=== PATIENT | female | born 1970 ===

== ENCOUNTER 2017-06-24 20:27 | Observation (INO) | payer MEDICAID ==
[2017-06-24 20:28] VITALS: BMI 26.3
[2017-06-24] MEDS ORDERED: Aspirin 325 mg EC Tablets PO STA (21:27)
--- NOTE | 2017-06-24 21:28 | C.PDOC ---
History Of Present Illness 46 y/o female with PMHx of diabetes and HTN presents with 4 days of waxing/ waning substernal chest pain, associated with nausea. No vomiting or SOB. Pain is not positional, exertional, or pleuritic in nature. Patient admits to smoking half a pack per day. No prior hx of cardiac disease. On arrival patient is hypertensive, blood pressure 186/103. She reports the pain also radiates into her back. Denies any associated dizziness, weakness, or visual changes. Time Seen by Provider: 06/24/17 21:20 Chief Complaint (Nursing): Chest Pain History Per: Patient History/Exam Limitations: no limitations Onset/Duration Of Symptoms: Waxing/Waning (x 4 days) Current Symptoms Are (Timing): Still Present Alleviating Factors: None Past Medical History Reviewed: Historical Data, Nursing Documentation, Vital Signs Vital Signs: Last Vital Signs Temp 97.9 F 06/24/17 20:44 Pulse 53 L 06/24/17 22:08 Resp 16 06/24/17 22:08 BP 142/72 06/24/17 22:08 Pulse Ox 98 06/24/17 22:12 - Medical History PMH: Anxiety, Diabetes, HTN Denies: Chronic Kidney Disease Surgical History: Pacemaker (removed in 2012) - [facility] Procedures VACCINATION NEC (03/24/14) Family History: States: No Known Family Hx - Social History Hx Tobacco Use: Yes Hx Alcohol Use: No Hx Substance Use: No - Immunization History Hx Tetanus Toxoid Vaccination: No Hx Influenza Vaccination: No Hx Pneumococcal Vaccination: No Review Of Systems Except As Marked, All Systems Reviewed And Found Negative. Constitutional: Negative for: Fever Eyes: Negative for: Vision Change Cardiovascular: Positive for: Chest Pain Respiratory: Negative for: Cough, Shortness of Breath Gastrointestinal: Positive for: Nausea. Negative for: Vomiting Musculoskeletal: Positive for: Back Pain Neurological: Negative for: Weakness, Numbness, Dizziness Physical Exam - Physical Exam Appears: Non-toxic, No Acute Distress, Other (Afebrile, O2 is 98% on room air) Skin: Warm, Dry, No Rash Head: Atraumatic, Normacephalic Eye(s): bilateral: Normal Inspection, PERRL, EOMI Nose: Normal Oral Mucosa: Moist Chest: Symmetrical, No Tenderness (or reproducible pain on palpation of chest wall) Cardiovascular: Rhythm Regular, No Murmur, Other (S1,S2 are wnl) Respiratory: Normal Breath Sounds, No Rales, No Rhonchi, No Wheezing Gastrointestinal/Abdominal: Soft, Tenderness (mild tenderness to epigastric area ), No Guarding, No Rebound Extremity: Bilateral: Atraumatic, Normal Color And Temperature (with no clubbing , cyanosis, or edema), Normal ROM Pulses: Left Dorsalis Pedis: Normal, Right Dorsalis Pedis: Normal Neurological/Psych: Oriented x3, Normal Speech, Normal Cranial Nerves, No Other (focal deficits) Gait: Steady ED Course And Treatment - Laboratory Results Result Diagrams: 06/24/17 21:37 06/24/17 21:37 O2 Sat by Pulse Oximetry: 98 (RA) Pulse Ox Interpretation: Normal - Radiology CXR: Interpreted by Me, Viewed By Me CXR Interpretation: Yes: No Acute Disease Medical Decision Making Medical Decision Making: Initial Impression: Atypical chest pain, multiple risk factors for ischemic heart disease Time: 21:27 Initial Plan: * Routine labs * EKG * Chest X-ray * Aspirin 325 mg PO * NTG 0.4 mg SL Progress/Updates: EKG: sinus jett at 55 bpm, no ectopy, no ST or T wave changes, intervals are all wnl Labs reviewed, D-dimer is elevated. CXR is negative. 22:[address] Lucretia Nobles, medicine on-call. Patient will be admitted for observation for chest pain. Disposition Counseled Patient/Family Regarding: Studies Performed, Diagnosis - Disposition Disposition: HOSPITALIZED Disposition Time: 22:10 Condition: FAIR Forms: [facility] (Nepali) - POA Present On Arrival: None Core Measure Indicators: Chest Pain - Clinical Impression Clinical Impression: Chest pain - Scribe Statement The provider has reviewed the documentation as recorded by the Scribe (Amber Rolon) Provider Attestation: All medical record entries made by the Scribe were at my direction and personally dictated by me. I have reviewed the chart and agree that the record accurately reflects my personal performance of the history, physical exam, medical decision making, and the department course for this patient. I have also personally directed, reviewed, and agree with the discharge instructions and disposition.
--- NOTE | 2017-06-24 21:29 | C.PDOC ---
Chief Complaint (Nursing): Chest Pain Past Medical History Vital Signs: Last Vital Signs Temp 97.9 F 06/24/17 20:44 Pulse 70 06/24/17 21:08 Resp 20 06/24/17 20:44 BP 186/103 H 06/24/17 20:44 Pulse Ox 98 06/24/17 20:44 - Medical History PMH: Anxiety, HTN Denies: Chronic Kidney Disease Surgical History: Pacemaker (removed in 2012) - [facility] Procedures VACCINATION NEC (03/24/14) - Social History Hx Tobacco Use: Yes Hx Alcohol Use: No Hx Substance Use: No - Immunization History Hx Tetanus Toxoid Vaccination: No Hx Influenza Vaccination: No Hx Pneumococcal Vaccination: No ED Course And Treatment O2 Sat by Pulse Oximetry: 98 Disposition - Disposition
[2017-06-24 21:43] LABS: BASO # 0.1 K/uL (0.0-0.2); BASO % 0.8 % (0.0-2.0); EOS # 0.3 K/uL (0.0-0.7); EOS % 4.7 % (0.0-4.0); HEMOGLOBIN 12.7 g/dL (11.0-16.0); LYMPH # 3.9 K/uL (1.0-4.3); MEAN CORPUSCULAR HEMOGLOBIN 30.2 pg (27.0-31.0); MEAN CORPUSCULAR HGB CONC 33.9 g/dL (33.0-37.0); MEAN PLATELET VOLUME 7.6 fL (7.2-11.7); MONO # 0.5 K/uL (0.0-0.8); MONO % 7.1 % (0.0-10.0); NEUT # 2.5 K/uL (1.8-7.0); NEUT % 34.4 % (50.0-75.0); NRBC % 0.1 % (0.0-2.0); RBC 4.21 Mil/uL (3.80-5.20); RED CELL DISTRIBUTION WIDTH 12.5 % (11.5-14.5); WHITE BLOOD COUNT 7.3 K/uL (4.8-10.8)
[2017-06-24 21:47] LABS: SQUAMOUS EPITHIAL 1 /hpf (0-5); URINE BILIRUBIN NEGATIVE (NEGATIVE); URINE BLOOD 2+ (NEGATIVE); URINE CLARITY Clear (Clear); URINE COLOR Colorless (YELLOW); URINE GLUCOSE (UA) NORMAL (Normal); URINE LEUKOCYTE ESTERASE NEG Leu/uL (Negative); URINE PROTEIN NEGATIVE (NEGATIVE); URINE UROBILINOGEN NORMAL mg/dL (0.2-1.0)
[2017-06-24 21:54] LABS: ALB/GLOB RATIO 1.1 (1.0-2.1); ALBUMIN 4.5 g/dL (3.5-5.0); ALT/SGPT 15 U/L (9-52); AST/SGOT 24 U/L (14-36); BLOOD UREA NITROGEN 13 mg/dL (7-17); CALCIUM 9.5 mg/dl (8.6-10.4); GFR AFRICAN-AMERICAN > 60; GFR NON-AFRICAN AMERICAN > 60
[2017-06-24 22:11] LABS: INR 1.2; PROTHROMBIN TIME 12.9 SECONDS (9.7-12.2)
[2017-06-25 08:53] LABS: CK-MB 0.26 ng/mL (0.0-3.38)
--- NOTE | 2017-06-25 09:26 | RAD ---
Chest x-ray single frontal view History: Chest pain. Comparison: None available. Findings: No focal infiltrate or effusion. Small nodular density at the right costophrenic angle may represent confluence of shadows with ribs and vessels. Heart size within normal limits. Impression: No focal infiltrate or effusion. Small nodular density at the right costophrenic angle may represent confluence of shadows with ribs and vessels.
[2017-06-25] MEDS: Enoxaparin 40 mg Syringe SC SCH (09:41)
[2017-06-25] MEDS ORDERED: AMLODIPINE BESYLATE 5 MG PO SCH (10:00)
[2017-06-25] MEDS ORDERED: Pantoprazole 40 mg EC Tab PO SCH (10:00)
--- NOTE | 2017-06-25 10:31 | CP.PCM.PN ---
Addendum entered and electronically signed by Stephy Ames DO 06/25/17 14:23: Patient see [facility] outpatient who works with Dr. Laughlin. Will switch the consult. Original Note: <Stephy Ames - Last Filed: 06/25/17 13:28> Subjective - Date & Time of Evaluation Date of Evaluation: 06/25/17 Time of Evaluation: 08:20 - Subjective Subjective: PGY [address] Lucretia Nobles: Patient see and examined at bedside this morning. Patient states that yesterday she was dizzy, having chest pain, was sob, and was vomiting but that this has all resolved as of this morning. She states that she takes amlodipine for htn at home and also told she was prediabetic. Patient used to have a pacemaker for bradycardia but it was removed. She has no complaints at this time. PMHX - HTN, prediabetic, bradycardia PSHx: pacemaker placed in 2002 and removed in 2012. C-sections x2, Family hx: mom and dad both have DM and HTN Social hx: lives with family. smokes 1 cig/week for one year. occasional etoh use (1 beer [id number]). denies drug use. Pt states she works in [employer] and lifts boxes. Meds: Amlodipine 5mg po qd, Metformin (3 months trial) Allergies: NKDA Objective - Vital Signs/Intake and Output Vital Signs (last 24 hours): Temp Pulse Resp BP Pulse Ox 98.2 F 49 L 16 126/68 100 06/25/17 07:25 06/25/17 09:30 06/25/17 09:30 06/25/17 09:30 06/25/17 09:30 Intake and Output: 06/25/17 06/25/17 06:59 18:59 Intake Total 120 Balance 120 - Medications Medications: Current Medications Aspirin (Aspirin Chewable) 81 mg PO DAILY [facility] Last Admin: 06/25/17 09:42 Dose: 81 mg Enoxaparin Sodium (Lovenox) 40 mg SC DAILY [facility] Last Admin: 06/25/17 09:41 Dose: 40 mg Home Med (Amlodipine Besylate [Amlodipine Besylate]) 5 mg PO DAILY [facility] Pantoprazole Sodium (Protonix Ec Tab) 40 mg PO DAILY [facility] Last Admin: 06/25/17 09:42 Dose: 40 mg - Labs Labs: 06/24/17 21:37 06/24/17 21:37 PT 12.9 SECONDS (9.7-12.2) H 06/24/17 21:37 INR 1.2 06/24/17 21:37 APTT 30 SECONDS (21-34) 06/24/17 21:37 - Constitutional Appears: Non-toxic, No Acute Distress - Head Exam Head Exam: ATRAUMATIC, NORMAL INSPECTION - Eye Exam Eye Exam: EOMI - ENT Exam ENT Exam: Mucous Membranes Moist - Respiratory Exam Respiratory Exam: Clear to Ausculation Bilateral, NORMAL BREATHING PATTERN. absent: Respiratory Distress - Cardiovascular Exam Cardiovascular Exam: Bradycardia, REGULAR RHYTHM, +S1, +S2, Murmur - GI/Abdominal Exam GI & Abdominal Exam: Soft, Normal Bowel Sounds. absent: Distended, Firm, Guarding, Tenderness - Extremities Exam Extremities Exam: Normal Inspection - Back Exam Back Exam: NORMAL INSPECTION - Neurological Exam Neurological Exam: Alert, Awake, CN II-XII Intact, Normal Gait, Oriented x3 Neuro motor strength exam: Left Upper Extremity: 5, Right Upper Extremity: 5, Left Lower Extremity: 5, Right Lower Extremity: 5 - Psychiatric Exam Psychiatric exam: Normal Affect, Normal Mood - Skin Skin Exam: Dry, Intact, Normal Color, Warm Assessment and Plan - Assessment and Plan (Free Text) Assessment: Chest pain r/o ACS patient is bradycardic (hx of a pacemaker) - asymptomatic this morning Trop negative x 2 Dr. Horvath consulted help appreciated Asa 81 mg PO daily EKG - sinus bradycardia with sinus arrhythmia Chest X ray - small nodular density at the right costophrenic angle may represent confluence of shadows with ribs and vessels f/u tsh, chem, lipid panel f/u echo (pt with murmur) Bradycardia Dr. Horvath consulted help appreciated Elevated DDImer was elevated when ordered by ER f.u CT angio per PE protocol Hypertension controlled Continue home amlodipine 5mg PO daily Hx pre diabetes f/u HbA1c hold home metformin as patient will receive contrast with CT scan, monitor renal function Prophylaxis Pepcid 20mg PO BID Lovenox 40mg Sc daily All management per Dr. Lucretia Nobles <Mirna Nobles S - Last Filed: 06/25/17 23:27> Objective - Vital Signs/Intake and Output Vital Signs (last 24 hours): Temp Pulse Resp BP Pulse Ox 98.0 F 67 20 105/63 99 06/25/17 15:00 06/25/17 16:00 06/25/17 15:00 06/25/17 15:00 06/25/17 15:00 Intake and Output: 06/25/17 06/26/17 18:59 06:59 Intake Total 960 Balance 960 - Medications Medications: Current Medications Amlodipine Besylate (Norvasc) 5 mg PO DAILY [facility] Last Admin: 06/25/17 11:01 Dose: 5 mg Aspirin (Aspirin Chewable) 81 mg PO DAILY [facility] Last Admin: 06/25/17 09:42 Dose: 81 mg Enoxaparin Sodium (Lovenox) 40 mg SC DAILY [facility] Last Admin: 06/25/17 09:41 Dose: 40 mg Famotidine (Pepcid) 20 mg PO BID [facility] Last Admin: 06/25/17 17:46 Dose: 20 mg - Labs Labs: 06/25/17 11:12 06/25/17 11:12 PT 12.9 SECONDS (9.7-12.2) H 06/24/17 21:37 INR 1.2 06/24/17 21:37 APTT 30 SECONDS (21-34) 06/24/17 21:37 Attending/Attestation - Attestation I have personally seen and examined this patient.: Yes I have fully participated in the care of the patient.: Yes I have reviewed all pertinent clinical information, including history, physical exam and plan: Yes
[2017-06-25 11:29] LABS: BASO % 0.7 % (0.0-2.0); EOS # 0.2 K/uL (0.0-0.7); EOS % 4.2 % (0.0-4.0); HEMOGLOBIN 12.4 g/dL (11.0-16.0); LYMPH # 2.3 K/uL (1.0-4.3); LYMPH % 44.9 % (20.0-40.0); MEAN CELL VOLUME 88.3 fL (81.0-99.0); MEAN CORPUSCULAR HEMOGLOBIN 30.2 pg (27.0-31.0); MEAN CORPUSCULAR HGB CONC 34.1 g/dL (33.0-37.0); MEAN PLATELET VOLUME 7.7 fL (7.2-11.7); MONO # 0.5 K/uL (0.0-0.8); MONO % 9.1 % (0.0-10.0); NEUT # 2.1 K/uL (1.8-7.0); NEUT % 41.1 % (50.0-75.0); NRBC % 0.1 % (0.0-2.0); RBC 4.1 Mil/uL (3.80-5.20); RED CELL DISTRIBUTION WIDTH 12.6 % (11.5-14.5); WHITE BLOOD COUNT 5.1 K/uL (4.8-10.8)
[2017-06-25] MEDS ORDERED: Iodixanol 320 MG/ML 100 ML BOTTLE IV ONE (11:39)
[2017-06-25 11:50] LABS: ALB/GLOB RATIO 1.2 (1.0-2.1); ALBUMIN 4.1 g/dL (3.5-5.0); ALT/SGPT 12 U/L (9-52); AST/SGOT 20 U/L (14-36); BLOOD UREA NITROGEN 10 mg/dL (7-17); GFR AFRICAN-AMERICAN > 60; GFR NON-AFRICAN AMERICAN > 60; HDL CHOLESTEROL 42 mg/dL (30-70)
[2017-06-25 11:59] LABS: LDL CHOLESTEROL 98 mg/dL (0-129)
--- NOTE | 2017-06-25 12:05 | CARD ---
APPROVED REPORT EKG Measurement Heart [id number] <Conclusion> Poor data quality, interpretation may be adversely affected Sinus bradycardia with sinus arrhythmia Otherwise normal ECG
--- NOTE | 2017-06-25 13:35 | CT ---
PROCEDURE: CT Chest with contrast (Pulmonary Angiogram) HISTORY: r/o PE elevated DDimer COMPARISON: None available. TECHNIQUE: Axial computed tomography images were obtained of the chest in the pulmonary arterial phase of enhancement. Coronal and sagittal reformatted images were created and reviewed. Intravenous contrast dose: Visipaque 320, 100 cc Radiation dose: Total exam DLP = 434.44 mGy-cm. This CT exam was performed using one or more of the following dose reduction techniques: Automated exposure control, adjustment of the mA and/or kV according to patient size, and/or use of iterative reconstruction technique. FINDINGS: PULMONARY ARTERIES: Unremarkable. No pulmonary embolism. AORTA: No acute findings. No thoracic aortic aneurysm. LUNGS: Unremarkable. No nodule, mass or pulmonary consolidation. PLEURAL SPACES: Unremarkable. No effusion or pneuomothorax. HEART: Unremarkable. No cardiomegaly. No significant pericardial effusion. There is a persistent left-sided inferior vena cava which extends cephalad adjoining the apparent azygos vein and apparently terminating at the mid to inferior superior vena cava. LYMPH NODES: No lymphadenopathy. BONES, CHEST WALL: Unremarkable. No fracture or destructive lesion OTHER FINDINGS: Unremarkable. IMPRESSION: 1. No CT evidence of pulmonary embolus. 2. No acute infiltrate, pleural or pericardial effusion. Cardiac size is stable with no interval suspicious pathology appreciated. 3. Reiteration of left-sided inferior vena cava with persistence to the azygos vein in the chest.
[2017-06-25 15:35] LABS: CK-MB < 0.22 ng/mL (0.0-3.38)
--- NOTE | 2017-06-25 17:13 | CP.PCM.HP ---
Past Patient History - Past Medical History & Family History Past Medical History?: Yes - Past Social History Smoking Status: Former Smoker - CARDIAC Hx Hypertension: Yes Hx Pacemaker: Yes (removed in 2012) - PULMONARY Hx Respiratory Disorders: No - NEUROLOGICAL Hx Neurological Disorder: No - HEENT Hx HEENT Problems: No - RENAL Hx Chronic Kidney Disease: No - ENDOCRINE/METABOLIC Hx Endocrine Disorders: No - HEMATOLOGICAL/ONCOLOGICAL Hx Blood Disorders: No - INTEGUMENTARY Hx Dermatological Problems: No - MUSCULOSKELETAL/RHEUMATOLOGICAL Hx Musculoskeletal Disorders: No - GASTROINTESTINAL Hx Gastrointestinal Disorders: No - GENITOURINARY/GYNECOLOGICAL Hx Genitourinary Disorders: No - PSYCHIATRIC Hx Anxiety: Yes Hx Substance Use: No - SURGICAL HISTORY Hx Surgeries: Yes Other/Comment: c section x 2 - ANESTHESIA Hx Anesthesia: Yes Hx Anesthesia Reactions: No Hx Malignant Hyperthermia: No Meds Allergies/Adverse Reactions: Allergies Allergy/AdvReac Type Severity Reaction Status Date / Time No Known Allergies Allergy Verified 06/24/17 20:48 Physical Exam - Constitutional Appears: Well - Head Exam Head Exam: ATRAUMATIC, NORMAL INSPECTION, NORMOCEPHALIC - Eye Exam Eye Exam: EOMI, Normal appearance, PERRL Pupil Exam: NORMAL ACCOMODATION, PERRL - ENT Exam ENT Exam: Mucous Membranes Moist, Normal Exam - Neck Exam Neck exam: Positive for: Normal Inspection - Respiratory Exam Respiratory Exam: Decreased Breath Sounds - Cardiovascular Exam Cardiovascular Exam: REGULAR RHYTHM, +S1, +S2 - GI/Abdominal Exam GI & Abdominal Exam: Diminished Bowel Sounds, Soft - Rectal Exam Rectal Exam: Deferred Results - Vital Signs Recent Vital Signs: Last Vital Signs Temp 98.0 F 06/25/17 15:00 Pulse 51 L 06/25/17 15:00 Resp 20 06/25/17 15:00 BP 105/63 06/25/17 15:00 Pulse Ox 99 06/25/17 15:00 - Labs Result Diagrams: 06/25/17 11:12 06/25/17 11:12 Labs: Laboratory Results - last 24 hr 06/24/17 06/24/17 06/24/17 21:37 21:37 21:37 WBC 7.3 RBC 4.21 Hgb 12.7 Hct 37.5 MCV 89.0 D MCH 30.2 MCHC 33.9 RDW 12.5 Plt Count 281 MPV 7.6 Neut % (Auto) 34.4 L Lymph % (Auto) 53.0 H [place] % (Auto) 7.1 Eos % (Auto) 4.7 H Baso % (Auto) 0.8 Neut # (Auto) 2.5 Lymph # (Auto) 3.9 [place] # (Auto) 0.5 Eos # (Auto) 0.3 Baso # (Auto) 0.1 PT 12.9 H INR 1.2 APTT 30 D-Dimer, Quantitative 376 H Sodium 143 Potassium 4.3 Chloride 104 Carbon Dioxide 25 Anion Gap 18 BUN 13 Creatinine 0.8 Est GFR ( Amer) > 60 Est GFR (Non-Af Amer) > 60 POC Glucose (mg/dL) Random Glucose 96 Hemoglobin A1c Calcium 9.5 Phosphorus Magnesium Total Bilirubin 0.4 AST 24 ALT 15 Alkaline Phosphatase 52 Total Creatine Kinase CK-MB (Mass) Troponin I < 0.0120 NT-Pro-B Natriuret Pep 40.0 Total Protein 8.7 H Albumin 4.5 Globulin 4.1 H Albumin/Globulin Ratio 1.1 Triglycerides Cholesterol LDL Cholesterol Direct HDL Cholesterol Urine Color Urine Clarity Urine pH Ur Specific [place] Urine Protein Urine Glucose (UA) Urine Ketones Urine Blood Urine Nitrate Urine Bilirubin Urine Urobilinogen Ur Leukocyte Esterase Urine RBC (Auto) Ur Squamous Epith Cells Urine HCG, Qual 06/24/17 06/24/17 06/25/17 21:37 21:37 06:17 WBC RBC Hgb Hct MCV MCH MCHC RDW Plt Count MPV Neut % (Auto) Lymph % (Auto) [place] % (Auto) Eos % (Auto) Baso % (Auto) Neut # (Auto) Lymph # (Auto) [place] # (Auto) Eos # (Auto) Baso # (Auto) PT INR APTT D-Dimer, Quantitative Sodium Potassium Chloride Carbon Dioxide Anion Gap BUN Creatinine Est GFR ( Amer) Est GFR (Non-Af Amer) POC Glucose (mg/dL) 88 Random Glucose Hemoglobin A1c Calcium Phosphorus Magnesium Total Bilirubin AST ALT Alkaline Phosphatase Total Creatine Kinase CK-MB (Mass) Troponin I NT-Pro-B Natriuret Pep Total Protein Albumin Globulin Albumin/Globulin Ratio Triglycerides Cholesterol LDL Cholesterol Direct HDL Cholesterol Urine Color Colorless Urine Clarity Clear Urine pH 7.0 Ur Specific [place] 1.003 Urine Protein Negative Urine Glucose (UA) Normal Urine Ketones Negative Urine Blood 2+ H Urine Nitrate Negative Urine Bilirubin Negative Urine Urobilinogen Normal Ur Leukocyte Esterase Neg Urine RBC (Auto) 19 H Ur Squamous Epith Cells 1 Urine HCG, Qual Negative 06/25/17 06/25/17 06/25/17 07:44 11:12 11:12 WBC 5.1 RBC 4.10 Hgb 12.4 Hct 36.2 MCV 88.3 MCH 30.2 MCHC 34.1 RDW 12.6 Plt Count 275 MPV 7.7 Neut % (Auto) 41.1 L Lymph % (Auto) 44.9 H [place] % (Auto) 9.1 Eos % (Auto) 4.2 H Baso % (Auto) 0.7 Neut # (Auto) 2.1 Lymph # (Auto) 2.3 [place] # (Auto) 0.5 Eos # (Auto) 0.2 Baso # (Auto) 0.0 PT INR APTT D-Dimer, Quantitative Sodium 141 Potassium 3.8 Chloride 104 Carbon Dioxide 24 Anion Gap 16 BUN 10 Creatinine 0.7 Est GFR ( Amer) > 60 Est GFR (Non-Af Amer) > 60 POC Glucose (mg/dL) Random Glucose 105 Hemoglobin A1c Calcium 9.0 Phosphorus 3.2 Magnesium 2.0 Total Bilirubin 0.4 AST 20 ALT 12 Alkaline Phosphatase 49 Total Creatine Kinase 74 CK-MB (Mass) 0.26 Troponin I < 0.0120 NT-Pro-B Natriuret Pep Total Protein 7.6 Albumin 4.1 Globulin 3.5 Albumin/Globulin Ratio 1.2 Triglycerides 40 D Cholesterol 164 LDL Cholesterol Direct 98 HDL Cholesterol 42 Urine Color Urine Clarity Urine pH Ur Specific [place] Urine Protein Urine Glucose (UA) Urine Ketones Urine Blood Urine Nitrate Urine Bilirubin Urine Urobilinogen Ur Leukocyte Esterase Urine RBC (Auto) Ur Squamous Epith Cells Urine HCG, Qual 06/25/17 06/25/17 11:12 15:01 WBC RBC Hgb Hct MCV MCH MCHC RDW Plt Count MPV Neut % (Auto) Lymph % (Auto) [place] % (Auto) Eos % (Auto) Baso % (Auto) Neut # (Auto) Lymph # (Auto) [place] # (Auto) Eos # (Auto) Baso # (Auto) PT INR APTT D-Dimer, Quantitative Sodium Potassium Chloride Carbon Dioxide Anion Gap BUN Creatinine Est GFR ( Amer) Est GFR (Non-Af Amer) POC Glucose (mg/dL) Random Glucose Hemoglobin A1c 6.1 Calcium Phosphorus Magnesium Total Bilirubin AST ALT Alkaline Phosphatase Total Creatine Kinase 69 CK-MB (Mass) < 0.22 Troponin I < 0.0120 NT-Pro-B Natriuret Pep Total Protein Albumin Globulin Albumin/Globulin Ratio Triglycerides Cholesterol LDL Cholesterol Direct HDL Cholesterol Urine Color Urine Clarity Urine pH Ur Specific [place] Urine Protein Urine Glucose (UA) Urine Ketones Urine Blood Urine Nitrate Urine Bilirubin Urine Urobilinogen Ur Leukocyte Esterase Urine RBC (Auto) Ur Squamous Epith Cells Urine HCG, Qual Assessment & Plan (1) Bradycardia Status: Acute (2) Chest discomfort Status: Acute (3) Chest pain Status: Acute (4) HTN (hypertension) Status: Acute (5) Prophylactic measure Status: Acute - Assessment and Plan (Free Text) Plan: Chest pain r/o ACS patient is bradycardic (hx of a pacemaker) - asymptomatic this morning Trop negative x 2 Dr. Horvath consulted help appreciated Asa 81 mg PO daily EKG - sinus bradycardia with sinus arrhythmia Chest X ray - small nodular density at the right costophrenic angle may represent confluence of shadows with ribs and vessels f/u tsh, chem, lipid panel f/u echo (pt with murmur) Bradycardia Dr. Horvath consulted help appreciated Elevated DDImer was elevated when ordered by ER f.u CT angio per PE protocol Hypertension controlled Continue home amlodipine 5mg PO daily Hx pre diabetes f/u HbA1c hold home metformin as patient will receive contrast with CT scan, monitor renal function Prophylaxis Pepcid 20mg PO BID Lovenox 40mg Sc daily
--- NOTE | 2017-06-25 18:02 | CP.PCM.CON ---
History of Present Illness - History of Present Illness History of Present Illness: The pt is a 46 year old woman with HTN. She had a PPM placed in [facility] for s bradycardia and syncope. Five years ago, she was evaluated by Dr Pierson who disagreed with PPM, and removed it. Pt has chronic s bradycardia. She has had vage prolonged chest pain, waxing and waning at rest. She has LLQ abdominal pain and loose stools. She has pain in her left shoulder and back that is positional. Finally, she has a headache. Initially, BP here was very high 180/100, but with only 5 mg of amlodipine, Bp is 142 systolic. TNI are negative times three, and ecg reveals nsr, no ischemic changes. A chest ct to r/o PE was negative. ECHO is normal, including normal diastolic function (would be expected to be abnormal with chronically poor controlled HTN) Review of Systems - Review of Systems All systems: reviewed and no additional remarkable complaints except (as above) Past Patient History - Past Medical History & Family History Past Medical History?: Yes - Past Social History Smoking Status: Former Smoker - CARDIAC Hx Hypertension: Yes Hx Pacemaker: Yes (removed in 2012) - PULMONARY Hx Respiratory Disorders: No - NEUROLOGICAL Hx Neurological Disorder: No - HEENT Hx HEENT Problems: No - RENAL Hx Chronic Kidney Disease: No - ENDOCRINE/METABOLIC Hx Endocrine Disorders: No - HEMATOLOGICAL/ONCOLOGICAL Hx Blood Disorders: No - INTEGUMENTARY Hx Dermatological Problems: No - MUSCULOSKELETAL/RHEUMATOLOGICAL Hx Musculoskeletal Disorders: No - GASTROINTESTINAL Hx Gastrointestinal Disorders: No - GENITOURINARY/GYNECOLOGICAL Hx Genitourinary Disorders: No - PSYCHIATRIC Hx Anxiety: Yes Hx Substance Use: No - SURGICAL HISTORY Hx Surgeries: Yes Other/Comment: c section x 2 - ANESTHESIA Hx Anesthesia: Yes Hx Anesthesia Reactions: No Hx Malignant Hyperthermia: No Meds Allergies/Adverse Reactions: Allergies Allergy/AdvReac Type Severity Reaction Status Date / Time No Known Allergies Allergy Verified 06/24/17 20:48 - Medications Medications: Current Medications Amlodipine Besylate (Norvasc) 5 mg PO DAILY [facility] Last Admin: 06/25/17 11:01 Dose: 5 mg Aspirin (Aspirin Chewable) 81 mg PO DAILY [facility] Last Admin: 06/25/17 09:42 Dose: 81 mg Enoxaparin Sodium (Lovenox) 40 mg SC DAILY [facility] Last Admin: 06/25/17 09:41 Dose: 40 mg Famotidine (Pepcid) 20 mg PO BID [facility] Last Admin: 06/25/17 17:46 Dose: 20 mg Physical Exam - Constitutional Appears: Well - Head Exam Head Exam: ATRAUMATIC - Eye Exam Eye Exam: EOMI - ENT Exam ENT Exam: Mucous Membranes Moist - Respiratory Exam Respiratory Exam: Clear to Auscultation Bilateral - Cardiovascular Exam Cardiovascular Exam: REGULAR RHYTHM - GI/Abdominal Exam GI & Abdominal Exam: Normal Bowel Sounds - Exam External exam: NORMAL EXTERNAL EXAM - Extremities Exam Extremities exam: Positive for: normal inspection - Neurological Exam Neurological exam: Alert, Oriented x3 - Psychiatric Exam Psychiatric exam: Anxious - Skin Skin Exam: Normal Color Results - Vital Signs Recent Vital Signs: Last Vital Signs Temp 98.0 F 06/25/17 15:00 Pulse 51 L 06/25/17 15:00 Resp 20 06/25/17 15:00 BP 105/63 06/25/17 15:00 Pulse Ox 99 06/25/17 15:00 - Labs Result Diagrams: 06/25/17 11:12 06/25/17 11:12 Labs: Laboratory Results - last 24 hr 06/24/17 06/24/17 06/24/17 21:37 21:37 21:37 WBC 7.3 RBC 4.21 Hgb 12.7 Hct 37.5 MCV 89.0 D MCH 30.2 MCHC 33.9 RDW 12.5 Plt Count 281 MPV 7.6 Neut % (Auto) 34.4 L Lymph % (Auto) 53.0 H Smyth % (Auto) 7.1 Eos % (Auto) 4.7 H Baso % (Auto) 0.8 Neut # (Auto) 2.5 Lymph # (Auto) 3.9 Smyth # (Auto) 0.5 Eos # (Auto) 0.3 Baso # (Auto) 0.1 PT 12.9 H INR 1.2 APTT 30 D-Dimer, Quantitative 376 H Sodium 143 Potassium 4.3 Chloride 104 Carbon Dioxide 25 Anion Gap 18 BUN 13 Creatinine 0.8 Est GFR ( Amer) > 60 Est GFR (Non-Af Amer) > 60 POC Glucose (mg/dL) Random Glucose 96 Hemoglobin A1c Calcium 9.5 Phosphorus Magnesium Total Bilirubin 0.4 AST 24 ALT 15 Alkaline Phosphatase 52 Total Creatine Kinase CK-MB (Mass) Troponin I < 0.0120 NT-Pro-B Natriuret Pep 40.0 Total Protein 8.7 H Albumin 4.5 Globulin 4.1 H Albumin/Globulin Ratio 1.1 Triglycerides Cholesterol LDL Cholesterol Direct HDL Cholesterol Urine Color Urine Clarity Urine pH Ur Specific [place] Urine Protein Urine Glucose (UA) Urine Ketones Urine Blood Urine Nitrate Urine Bilirubin Urine Urobilinogen Ur Leukocyte Esterase Urine RBC (Auto) Ur Squamous Epith Cells Urine HCG, Qual 06/24/17 06/24/17 06/25/17 21:37 21:37 06:17 WBC RBC Hgb Hct MCV MCH MCHC RDW Plt Count MPV Neut % (Auto) Lymph % (Auto) Smyth % (Auto) Eos % (Auto) Baso % (Auto) Neut # (Auto) Lymph # (Auto) Smyth # (Auto) Eos # (Auto) Baso # (Auto) PT INR APTT D-Dimer, Quantitative Sodium Potassium Chloride Carbon Dioxide Anion Gap BUN Creatinine Est GFR ( Amer) Est GFR (Non-Af Amer) POC Glucose (mg/dL) 88 Random Glucose Hemoglobin A1c Calcium Phosphorus Magnesium Total Bilirubin AST ALT Alkaline Phosphatase Total Creatine Kinase CK-MB (Mass) Troponin I NT-Pro-B Natriuret Pep Total Protein Albumin Globulin Albumin/Globulin Ratio Triglycerides Cholesterol LDL Cholesterol Direct HDL Cholesterol Urine Color Colorless Urine Clarity Clear Urine pH 7.0 Ur Specific [place] 1.003 Urine Protein Negative Urine Glucose (UA) Normal Urine Ketones Negative Urine Blood 2+ H Urine Nitrate Negative Urine Bilirubin Negative Urine Urobilinogen Normal Ur Leukocyte Esterase Neg Urine RBC (Auto) 19 H Ur Squamous Epith Cells 1 Urine HCG, Qual Negative 06/25/17 06/25/17 06/25/17 07:44 11:12 11:12 WBC 5.1 RBC 4.10 Hgb 12.4 Hct 36.2 MCV 88.3 MCH 30.2 MCHC 34.1 RDW 12.6 Plt Count 275 MPV 7.7 Neut % (Auto) 41.1 L Lymph % (Auto) 44.9 H Smyth % (Auto) 9.1 Eos % (Auto) 4.2 H Baso % (Auto) 0.7 Neut # (Auto) 2.1 Lymph # (Auto) 2.3 Smyth # (Auto) 0.5 Eos # (Auto) 0.2 Baso # (Auto) 0.0 PT INR APTT D-Dimer, Quantitative Sodium 141 Potassium 3.8 Chloride 104 Carbon Dioxide 24 Anion Gap 16 BUN 10 Creatinine 0.7 Est GFR ( Amer) > 60 Est GFR (Non-Af Amer) > 60 POC Glucose (mg/dL) Random Glucose 105 Hemoglobin A1c Calcium 9.0 Phosphorus 3.2 Magnesium 2.0 Total Bilirubin 0.4 AST 20 ALT 12 Alkaline Phosphatase 49 Total Creatine Kinase 74 CK-MB (Mass) 0.26 Troponin I < 0.0120 NT-Pro-B Natriuret Pep Total Protein 7.6 Albumin 4.1 Globulin 3.5 Albumin/Globulin Ratio 1.2 Triglycerides 40 D Cholesterol 164 LDL Cholesterol Direct 98 HDL Cholesterol 42 Urine Color Urine Clarity Urine pH Ur Specific [place] Urine Protein Urine Glucose (UA) Urine Ketones Urine Blood Urine Nitrate Urine Bilirubin Urine Urobilinogen Ur Leukocyte Esterase Urine RBC (Auto) Ur Squamous Epith Cells Urine HCG, Qual 06/25/17 06/25/17 11:12 15:01 WBC RBC Hgb Hct MCV MCH MCHC RDW Plt Count MPV Neut % (Auto) Lymph % (Auto) Smyth % (Auto) Eos % (Auto) Baso % (Auto) Neut # (Auto) Lymph # (Auto) Smyth # (Auto) Eos # (Auto) Baso # (Auto) PT INR APTT D-Dimer, Quantitative Sodium Potassium Chloride Carbon Dioxide Anion Gap BUN Creatinine Est GFR ( Amer) Est GFR (Non-Af Amer) POC Glucose (mg/dL) Random Glucose Hemoglobin A1c 6.1 Calcium Phosphorus Magnesium Total Bilirubin AST ALT Alkaline Phosphatase Total Creatine Kinase 69 CK-MB (Mass) < 0.22 Troponin I < 0.0120 NT-Pro-B Natriuret Pep Total Protein Albumin Globulin Albumin/Globulin Ratio Triglycerides Cholesterol LDL Cholesterol Direct HDL Cholesterol Urine Color Urine Clarity Urine pH Ur Specific [place] Urine Protein Urine Glucose (UA) Urine Ketones Urine Blood Urine Nitrate Urine Bilirubin Urine Urobilinogen Ur Leukocyte Esterase Urine RBC (Auto) Ur Squamous Epith Cells Urine HCG, Qual - EKG Data EKG Interpreted by: Myself (sinus bradycardia, otherwise normal) Assessment & Plan - Assessment and Plan (Free Text) Assessment: 1. Sinus bradycardia: chronic, has been evaluated thoroughly by Dr pierson. 2. HTN: now nearly controlled with norvasc. Consider increase to 10 if needed 3. Although pt is a smoker, diabetic, chest pain is atypical, tni are negative, echo is normal, and recent stress test was normal. Pt was reassured chest pain no likely related to the heart. .
[2017-06-26 07:42] LABS: BASO % 0.9 % (0.0-2.0); EOS # 0.3 K/uL (0.0-0.7); EOS % 5.6 % (0.0-4.0); HEMOGLOBIN 12.1 g/dL (11.0-16.0); LYMPH # 2.1 K/uL (1.0-4.3); LYMPH % 43.7 % (20.0-40.0); MEAN CELL VOLUME 88.9 fL (81.0-99.0); MEAN CORPUSCULAR HEMOGLOBIN 30.5 pg (27.0-31.0); MEAN CORPUSCULAR HGB CONC 34.3 g/dL (33.0-37.0); MEAN PLATELET VOLUME 7.7 fL (7.2-11.7); MONO # 0.5 K/uL (0.0-0.8); MONO % 9.9 % (0.0-10.0); NEUT # 1.9 K/uL (1.8-7.0); NEUT % 39.9 % (50.0-75.0); NRBC % 0.1 % (0.0-2.0); RBC 3.98 Mil/uL (3.80-5.20); RED CELL DISTRIBUTION WIDTH 12.7 % (11.5-14.5); WHITE BLOOD COUNT 4.7 K/uL (4.8-10.8)
[2017-06-26 07:56] LABS: ALB/GLOB RATIO 1.1 (1.0-2.1); ALBUMIN 3.9 g/dL (3.5-5.0); ALT/SGPT 14 U/L (9-52); AST/SGOT 19 U/L (14-36); BLOOD UREA NITROGEN 18 mg/dL (7-17); CALCIUM 8.9 mg/dl (8.6-10.4); GFR AFRICAN-AMERICAN > 60; GFR NON-AFRICAN AMERICAN > 60
--- NOTE | 2017-06-26 09:53 | CP.PCM.PN ---
Subjective - Date & Time of Evaluation Date of Evaluation: 06/26/17 Time of Evaluation: 09:50 - Subjective Subjective: PGY2 progress note for Dr. Nobles Pt is seen and examined at bedside. No acute events overnight. patient is noted to have sinus bradycardia with HR in 30s overnight. Patient has known sinus bradycardia and has been evaluated for this before. Denies having any CP , SOB, abd pain, N/V/D/C, F/C, LE pain or swelling. 12 point ros negative except for the above mentioned. Objective - Vital Signs/Intake and Output Vital Signs (last 24 hours): Temp Pulse Resp BP Pulse Ox 97.9 F 51 L 18 103/57 L 98 06/26/17 07:20 06/26/17 07:20 06/26/17 07:20 06/26/17 07:20 06/26/17 07:20 Intake and Output: 06/26/17 06/26/17 06:59 18:59 Intake Total 100 Balance 100 - Medications Medications: Current Medications Amlodipine Besylate (Norvasc) 5 mg PO DAILY [facility] Last Admin: 06/25/17 11:01 Dose: 5 mg Aspirin (Aspirin Chewable) 81 mg PO DAILY [facility] Last Admin: 06/25/17 09:42 Dose: 81 mg Enoxaparin Sodium (Lovenox) 40 mg SC DAILY [facility] Last Admin: 06/25/17 09:41 Dose: 40 mg Famotidine (Pepcid) 20 mg PO BID [facility] Last Admin: 06/25/17 17:46 Dose: 20 mg - Labs Labs: 06/26/17 07:30 06/26/17 07:30 PT 12.9 SECONDS (9.7-12.2) H 06/24/17 21:37 INR 1.2 06/24/17 21:37 APTT 30 SECONDS (21-34) 06/24/17 21:37 - Constitutional Appears: Non-toxic, No Acute Distress - Head Exam Head Exam: ATRAUMATIC - ENT Exam ENT Exam: Mucous Membranes Moist - Respiratory Exam Respiratory Exam: Clear to Ausculation Bilateral. absent: Accessory Muscle Use , Rales, Rhonchi, Wheezes, Respiratory Distress - Cardiovascular Exam Cardiovascular Exam: Bradycardia, REGULAR RHYTHM, +S1, +S2. absent: Gallop, Rubs - GI/Abdominal Exam GI & Abdominal Exam: Soft, Normal Bowel Sounds. absent: Distended, Firm, Guarding, Rigid, Tenderness, Organomegaly - Extremities Exam Extremities Exam: absent: Pedal Edema, Tenderness - Neurological Exam Neurological Exam: Alert, Awake, Oriented x3 - Psychiatric Exam Psychiatric exam: Normal Affect, Normal Mood - Skin Skin Exam: Dry, Intact, Normal Color, Warm Assessment and Plan - Assessment and Plan (Free Text) Assessment: Chest pain r/o ACS Asymptomatic this am. Pt states that after receiving pepcid, her chest pain resolved. Trop negative x 3 Cardiology, Dr. Laughlin is consulted. Per cardiology note, echo was reviewed by assembler faucets and was normal. Patient also had a recent stress test that was normal. Per cardio note, CP likely not cardiac related. Please see note for full details. Asa 81 mg PO daily Chest X ray - small nodular density at the right costophrenic angle may represent confluence of shadows with ribs and vessels Lipid panel and HgbA1c is normal Sinus Bradycardia Pt had thorough workup by Dr. Pierson. Patient had previous pacemaker placed for the bradycardia but was removed after pt was asymptomatic for 3 months ( assessment with holtermonitor). Pt is asymptomatic Elevated DDImer CTS of chest was negative for PE Hypertension controlled Continue home amlodipine 5mg PO daily glucose intolerance Hgb A1c is 6.1 Pt is advised on increasing her aerobic weekly exercise and maintianing a low fat and low carb diet Prophylaxis Pepcid 20mg PO BID Lovenox 40mg Sc daily All management per Dr. Lucretia Nobles Patient is stable for discharge home per Dr. Nobles Patient is to follow up with PMD upon discharge Patient is also to follow up with [employer]uc[employer] upon discharge Patient is discharged on the following medications; Amlodipine 5 mg po qd #30, Pepcid 20 mg po QD #30, Aspirin 81 mg po qd #30. If symptoms worsen, please return to ED.
[2017-06-26] MEDS: Enoxaparin 40 mg Syringe SC SCH (10:06)
[2017-06-26] MEDS ORDERED: POLYETHYLENE GLYCOL 3350 17 GM/Dose PACKET PO SCH (10:30)
--- NOTE | 2017-06-26 14:00 | CARD ---
APPROVED REPORT EXAM: Two-dimensional and M-mode echocardiogram with Doppler and color Doppler. Other Information Quality : GoodRhythm : INDICATION Chest Pain Murmur RISK FACTORS Hypertension Diabetes 2D DIMENSIONS IVSd0.8 (0.7-1.1cm)LVDd4.7 (3.9-5.9cm) PWd0.8 (0.7-1.1cm)LVDs2.9 (2.5-4.0cm) FS (%) 38.3 %LVEF (%)68.6 (>50%) M-Mode DIMENSIONS Left Atrium (MM)3.71 (2.5-4.0cm)Aortic Root2.90 (2.2-3.7cm) Aortic Cusp Exc.2.07 (1.5-2.0cm) Mitral Valve MV E Doaynbws05.5cm/sMV A Luihibcv69.8cm/sE/A ratio1.5 TDI E/Lateral E'0.0E/Medial E'0.0 Tricuspid Valve TR Peak [id number]/sTR Peak Gr.13mmHg LEFT VENTRICLE The left ventricle is normal size. There is normal left ventricular wall thickness. The left ventricular function is normal. The left ventricular ejection fraction is within the normal range. No regional wall motion abnormalities noted. The left ventricular diastolic function is normal. No left ventricle thrombus noted on this study. There is no ventricular septal defect visualized. There is no left ventricular aneurysm. There is no mass noted in the left ventricle. RIGHT VENTRICLE The right ventricle is normal size. There is normal right ventricular wall thickness. The right ventricular systolic function is normal. ATRIA The left atrium size is normal. The right atrium size is normal. The interatrial septum is intact with no evidence for an atrial septal defect. AORTIC VALVE The aortic valve is normal in structure and function. No aortic regurgitation is present. There is no aortic valvular stenosis. There is no aortic valvular vegetation. MITRAL VALVE The mitral valve is normal in structure and function. There is no evidence of mitral valve prolapse. There is no mitral valve stenosis. Mitral regurgitation is mild.. TRICUSPID VALVE The tricuspid valve is normal in structure and function. There is no tricuspid valve regurgitation noted. There is no tricuspid valve prolapse or vegetation. There is no tricuspid valve stenosis. PULMONIC VALVE The pulmonary valve is normal in structure and function. There is no pulmonic valvular regurgitation. There is no pulmonic valvular stenosis. GREAT VESSELS The aortic root is normal in size. The ascending aorta is normal in size. The pulmonary artery is normal. The IVC is normal in size and collapses >50% with inspiration. PERICARDIAL EFFUSION The pericardium appears normal. There is no pleural effusion. <Conclusion> The left ventricular function is normal. The left ventricular ejection fraction is within the normal range. Mitral regurgitation is mild..
[2017-06-26 16:12] VITALS: BP 117/72; PULSE 46; RESP 20; TEMP 98.2; O2SAT 100
--- NOTE | 2017-06-26 16:27 | CP.PCM.PN ---
Subjective - Date & Time of Evaluation Date of Evaluation: 06/26/17 Time of Evaluation: 09:15 - Subjective Subjective: clinically same Objective - Vital Signs/Intake and Output Vital Signs (last 24 hours): Temp Pulse Resp BP Pulse Ox 98.2 F 46 L 20 117/72 100 06/26/17 16:11 06/26/17 16:11 06/26/17 16:11 06/26/17 16:11 06/26/17 16:11 Intake and Output: 06/26/17 06/26/17 06:59 18:59 Intake Total 100 Balance 100 - Medications Medications: Current Medications Amlodipine Besylate (Norvasc) 5 mg PO DAILY [facility] Last Admin: 06/26/17 10:05 Dose: 5 mg Aspirin (Aspirin Chewable) 81 mg PO DAILY [facility] Last Admin: 06/26/17 10:05 Dose: 81 mg Enoxaparin Sodium (Lovenox) 40 mg SC DAILY [facility] Last Admin: 06/26/17 10:06 Dose: 40 mg Famotidine (Pepcid) 20 mg PO BID [facility] Last Admin: 06/26/17 10:06 Dose: 20 mg Polyethylene Glycol (Miralax) 17 gm PO DAILY [facility] Last Admin: 06/26/17 12:09 Dose: 17 gm - Labs Labs: 06/26/17 07:30 06/26/17 07:30 PT 12.9 SECONDS (9.7-12.2) H 06/24/17 21:37 INR 1.2 06/24/17 21:37 APTT 30 SECONDS (21-34) 06/24/17 21:37 - Constitutional Appears: Well - Head Exam Head Exam: ATRAUMATIC, NORMAL INSPECTION, NORMOCEPHALIC - Eye Exam Eye Exam: EOMI, Normal appearance, PERRL Pupil Exam: NORMAL ACCOMODATION, PERRL - ENT Exam ENT Exam: Mucous Membranes Moist, Normal Exam - Neck Exam Neck Exam: Full ROM, Normal Inspection. absent: Lymphadenopathy - Respiratory Exam Respiratory Exam: Decreased Breath Sounds - Cardiovascular Exam Cardiovascular Exam: REGULAR RHYTHM, +S1, +S2 - GI/Abdominal Exam GI & Abdominal Exam: Soft, Diminished Bowel Sounds - Rectal Exam Rectal Exam: Deferred Assessment and Plan (1) Bradycardia Status: Acute (2) Chest discomfort Status: Acute (3) Chest pain Status: Acute (4) HTN (hypertension) Status: Acute (5) Prophylactic measure Status: Acute
--- NOTE | 2017-06-27 12:25 | CARD ---
APPROVED REPORT EKG Measurement Heart [id number] <Conclusion> Sinus bradycardia Otherwise normal ECG
--- NOTE | 2017-06-27 12:26 | CARD ---
APPROVED REPORT EKG Measurement Heart [id number] <Conclusion> Sinus rhythm with 2nd degree AV block with 2:[address] abnormality Abnormal ECG
== END 2017-06-26 17:50 | disposition home or self-care (01) ==
LOC: C.ER 20:27 → C.9E 22:11 → C.6T 23:08
PROVIDERS: ADMIT Internal Medicine Nephrology; ATTEND Internal Medicine Nephrology
DX: R07.89 Other chest pain (principal); R00.1 Bradycardia, unspecified; I10 Essential (primary) hypertension; R73.03 Prediabetes; F17.210 Nicotine dependence, cigarettes, uncomplicated; R79.1 Abnormal coagulation profile
CPT/HCPCS: 36415; 71045; 71275; 80053; 80061; 81001; 82948; 83036; 83735; 83880; 84100; 84484; 84703; 85025; 85378; 85610; 85730; 93005; 93306; 99285; G0378; J1650; Q9967

== ENCOUNTER 2018-03-02 23:45 | Emergency (ER) | payer SELFPAY ==
[2018-03-02 23:45] VITALS: BMI 26.3
[2018-03-03] MEDS ORDERED: Sodium Chloride 0.9% 1,000 ML IV STA (00:02)
[2018-03-03 00:10] VITALS: RESP 18
[2018-03-03] MEDS ORDERED: Sodium Chloride 0.9% 250 ML IV ONE (00:22)
[2018-03-03 00:24] LABS: BASO # 0.1 K/uL (0.0-0.2); BASO % 0.6 % (0.0-2.0); EOS # 0.3 K/uL (0.0-0.7); EOS % 3.2 % (0.0-4.0); HEMOGLOBIN 12.5 g/dL (11.0-16.0); LYMPH # 4.5 K/uL (1.0-4.3); LYMPH % 53.4 % (20.0-40.0); MEAN CELL VOLUME 90.5 fL (81.0-99.0); MEAN CORPUSCULAR HEMOGLOBIN 30.6 pg (27.0-31.0); MEAN CORPUSCULAR HGB CONC 33.8 g/dL (33.0-37.0); MEAN PLATELET VOLUME 7.4 fL (7.2-11.7); MONO # 0.6 K/uL (0.0-0.8); MONO % 6.9 % (0.0-10.0); NEUT % 35.9 % (50.0-75.0); RBC 4.07 Mil/uL (3.80-5.20); RED CELL DISTRIBUTION WIDTH 12.6 % (11.5-14.5); WHITE BLOOD COUNT 8.3 K/uL (4.8-10.8)
[2018-03-03 00:35] LABS: ALB/GLOB RATIO 1.4 (1.0-2.1); ALBUMIN 4.4 g/dL (3.5-5.0); ALT/SGPT 29 U/L (9-52); AST/SGOT 24 U/L (14-36); BLOOD UREA NITROGEN 16 mg/dL (7-17); CALCIUM 9.3 mg/dl (8.6-10.4); GFR NON-AFRICAN AMERICAN > 60; LIPASE 140 U/L (23-300)
--- NOTE | 2018-03-03 00:38 | C.PDOC ---
History Of Present Illness 47 y/o F p/w abdominal pain x 4 days. Pain is diffuse, colicky, intermittent, associated with no bowel movement for the same duration. States has occurred before but was relieved with Senna but this episode has not. Reports 3 episodes of bilious vomiting. Denies fever, chills, chest pain, dyspnea, dysuria. Time Seen by Provider: 03/02/18 23:56 Chief Complaint (Nursing): Abdominal Pain Past Medical History Vital Signs: Last Vital Signs Temp 97.4 F L 03/03/18 00:03 Pulse 125 H 03/03/18 00:03 Resp 18 03/03/18 00:03 BP 110/70 03/03/18 00:03 Pulse Ox 95 03/03/18 00:03 - Medical History PMH: Anxiety, Diabetes, HTN Denies: Chronic Kidney Disease Surgical History: Pacemaker (removed in 2012) - [employer] Procedures VACCINATION NEC (03/24/14) Family History: States: No Known Family Hx - Social History Hx Tobacco Use: Yes Hx Alcohol Use: No Hx Substance Use: No - Immunization History Hx Tetanus Toxoid Vaccination: No Hx Influenza Vaccination: No Hx Pneumococcal Vaccination: No Review Of Systems Except As Marked, All Systems Reviewed And Found Negative. Constitutional: Negative for: Fever Cardiovascular: Negative for: Chest Pain Physical Exam - Physical Exam Additional Physical Exam Comments: Constitutional: Writhing in pain. Head: Normocephalic. Atraumatic. Eyes: PERRL. ENT: Moist mucous membranes. Neck: Supple. Cardiovascular: Tachycardic. Chest: No tenderness. Respiratory: Clear to auscultation bilaterally. GI: Soft. Nontender. Nondistended. Back: No CVA tenderness. Musculoskeletal: No tenderness or swelling of extremities. Skin: No rash. Neurologic: Alert, no focal deficit. ED Course And Treatment - Laboratory Results Result Diagrams: 03/03/18 00:20 03/03/18 00:20 O2 Sat by Pulse Oximetry: 95 Medical Decision Making Medical Decision Making: CT abd/pel Results: COMMENTS: Fluid filled, mildly distended stomach. Mild diffuse thickening and enhancement of the colon. Colonic diverticulosis. The liver is of uniform attenuation without mass or defect. There is no intra or extrahepatic biliary ductal dilatation. The spleen is normal. The gallbladder is within normal limits. The pancreas is of normal contour and attenuation characteristics. There is no evidence of adrenal mass. Both kidneys demonstrate prompt and equal nephrograms. The kidneys are normal in size, shape and configuration. There is no evidence of renal or ureteral mass. No renal or ureteral calculi are identified. There is no hydroureter or hydronephrosis. No evidence for appendicitis. No evidence for small or large bowel obstruction. There is no evidence of abdominal ascites or lymphadenopathy. There is no evidence of intrinsic or extrinsic bladder mass. There is no pelvic ascites or lymphadenopathy. Images of the lung bases show no evidence of pleural or parenchymal mass. There are no pleural effusions. The bony structures are free of lytic or blastic lesions. IMPRESSION: Mild, uncomplicated colitis. Gastroparesis. Patient in no acute distress. Labs unremarkable. Antibiotics prescribed. Discharged home, f/u PMD, return to ED for worsening pain, fever, vomiting, dyspnea, or any other problem. Disposition - Disposition Disposition: HOME/ ROUTINE Disposition Time: 02:39 Condition: STABLE Prescriptions: Ibuprofen [Motrin] 1 tab PO Q6 #30 tab levoFLOXacin [Levaquin] 1 tab PO DAILY #10 tab Metronidazole [Flagyl] 500 mg PO Q8 #30 tab Ondansetron ODT [Zofran ODT] 4 mg PO Q8 #12 odt Instructions: Colitis Forms: [facility] (Romansh) - Clinical Impression Clinical Impression: Colitis
[2018-03-03 00:55] LABS: SQUAMOUS EPITHIAL 1 /hpf (0-5); URINE BACTERIA RARE (<OCC); URINE BILIRUBIN NEGATIVE (NEGATIVE); URINE BLOOD 2+ (NEGATIVE); URINE CLARITY Clear (Clear); URINE COLOR Yellow (YELLOW); URINE GLUCOSE (UA) NORMAL (Normal); URINE HYALINE CAST >20 /lpf (0-2); URINE LEUKOCYTE ESTERASE NEG Leu/uL (Negative); URINE PROTEIN 2+ mg/dL (NEGATIVE)
[2018-03-03] MEDS ORDERED: Iodixanol 320 MG/ML 100 ML BOTTLE IV ONE (01:10)
[2018-03-03 01:40] VITALS: TEMP 98.2
[2018-03-03 02:52] VITALS: BP 117/69; PULSE 67
[2018-03-03 03:30] VITALS: O2SAT 95
--- NOTE | 2018-03-03 10:05 | CT ---
Date of service: 03/03/2018 PROCEDURE: CT Abdomen and Pelvis with contrast HISTORY: abd pain, vomiting, constipation COMPARISON: Not available TECHNIQUE: Contrast dose: 100 mL Visipaque 320 Radiation dose: Total exam DLP = 827.06 mGy-cm. This CT exam was performed using one or more of the following dose reduction techniques: Automated exposure control, adjustment of the mA and/or kV according to patient size, and/or use of iterative reconstruction technique. FINDINGS: LOWER THORAX: Unremarkable. LIVER: Unremarkable. No gross lesion or ductal dilatation. GALLBLADDER AND BILE DUCTS: Unremarkable. PANCREAS: Unremarkable. No gross lesion or ductal dilatation. SPLEEN: Unremarkable. ADRENALS: Unremarkable. No mass. KIDNEYS AND URETERS: Unremarkable. No hydronephrosis. No solid mass. VASCULATURE: Unremarkable. No aortic aneurysm. No aortic atherosclerotic calcification or mural plaque present. BOWEL: Nondistended colon. Questionable diffuse colonic mural thickening. This may indicate a mild colitis. Correlate clinically. Mild circumferential mural thickening of multiple loops of jejunum consistent with nonspecific enteritis. No bowel obstruction. APPENDIX: Normal appendix. PERITONEUM: Unremarkable. No free fluid. No free air. LYMPH NODES: Unremarkable. No enlarged lymph nodes. BLADDER: Unremarkable. REPRODUCTIVE: Normal uterus BONES: No acute fracture. OTHER FINDINGS: None. IMPRESSION: Probable mild diffuse nonspecific colitis. Mild nonspecific enteritis. No additional abnormality. The preliminary findings for this examination were reported by [facility] at 03/03/2018 at 2:24 a.m.. There is concurrence of this report with the preliminary findings.
== END 2018-03-03 02:54 | disposition home or self-care (01) ==
LOC: C.ER 23:45
DX: K52.9 Noninfective gastroenteritis and colitis, unspecified (principal); I10 Essential (primary) hypertension; E11.9 Type 2 diabetes mellitus without complications
CPT/HCPCS: 74177; 80053; 81001; 82948; 83690; 84703; 85025; 87086; 96361; 96374; 96375; 99285; J1885; J2405; J7030; Q9967

== ENCOUNTER 2018-03-09 00:15 | Emergency (ER) | payer OTHER ==
[2018-03-09 00:16] VITALS: BMI 26.3
[2018-03-09 00:34] VITALS: RESP 20
[2018-03-09 01:27] LABS: HCG,QUALITATIVE URINE NEGATIVE (NEGATIVE)
[2018-03-09 01:28] LABS: SQUAMOUS EPITHIAL 2 /hpf (0-5); URINE BACTERIA OCC (<OCC); URINE BILIRUBIN NEGATIVE (NEGATIVE); URINE BLOOD 2+ (NEGATIVE); URINE CLARITY Clear (Clear); URINE COLOR Straw (YELLOW); URINE GLUCOSE (UA) NORMAL (Normal); URINE LEUKOCYTE ESTERASE NEG Leu/uL (Negative); URINE PROTEIN NEGATIVE (NEGATIVE); URINE UROBILINOGEN NORMAL mg/dL (0.2-1.0)
[2018-03-09] MEDS ORDERED: Sodium Chloride 0.9% 1,000 ML IV ONE (01:34)
[2018-03-09 01:42] LABS: BASO # 0.1 K/uL (0.0-0.2); BASO % 1.1 % (0.0-2.0); EOS # 0.3 K/uL (0.0-0.7); EOS % 5.2 % (0.0-4.0); HEMOGLOBIN 12.5 g/dL (11.0-16.0); LYMPH % 50.2 % (20.0-40.0); MEAN CELL VOLUME 90.6 fL (81.0-99.0); MEAN CORPUSCULAR HEMOGLOBIN 30.2 pg (27.0-31.0); MEAN CORPUSCULAR HGB CONC 33.4 g/dL (33.0-37.0); MEAN PLATELET VOLUME 7.9 fL (7.2-11.7); MONO # 0.6 K/uL (0.0-0.8); MONO % 9.3 % (0.0-10.0); NEUT % 34.2 % (50.0-75.0); NRBC % 0.1 % (0.0-2.0); RBC 4.15 Mil/uL (3.80-5.20); RED CELL DISTRIBUTION WIDTH 12.3 % (11.5-14.5)
[2018-03-09 01:57] LABS: ALB/GLOB RATIO 1.5 (1.0-2.1); ALBUMIN 4.5 g/dL (3.5-5.0); ALT/SGPT 22 U/L (9-52); AST/SGOT 21 U/L (14-36); BLOOD UREA NITROGEN 13 mg/dL (7-17); CALCIUM 9.3 mg/dl (8.6-10.4); GFR NON-AFRICAN AMERICAN > 60; LIPASE 149 U/L (23-300)
--- NOTE | 2018-03-09 02:30 | C.PDOC ---
History Of Present Illness 47 y/o female comes in to ED complaining of abdominal pain/discomfort, has been present since 03/02/18 when she was seen in out ED for abdominal pain. Patient had CT scan done at the time, which showed diffuse nonspecific colitis. She was discharged with Rxs for Flagyl and Levaquin. She states that since then she has not had any BMs, and she has been strainging to go and noticed small amounts of blood when she wipes. Her original abdominal pain has improved since takign antibiotics however. Patient denies nausea/vomiting, fever, dysuria/hematria. Time Seen by Provider: 03/09/18 01:15 Chief Complaint (Nursing): Abdominal Pain History Per: Patient History/Exam Limitations: no limitations Onset/Duration Of Symptoms: Days Current Symptoms Are (Timing): Still Present Severity: Mild Associated Symptoms: Constipation. denies: Nausea, Vomiting, Diarrhea, Urinary Symptoms Past Medical History Reviewed: Historical Data, Nursing Documentation, Vital Signs Vital Signs: Last Vital Signs Temp 97.8 F 03/09/18 00:20 Pulse 52 L 03/09/18 00:20 Resp 20 03/09/18 00:20 BP 136/88 03/09/18 00:20 Pulse Ox 94 L 03/09/18 00:20 - Medical History PMH: Anxiety, Diabetes, HTN Surgical History: Pacemaker (removed in 2012) - [facility] Procedures VACCINATION NEC (03/24/14) Family History: States: No Known Family Hx - Social History Hx Tobacco Use: Yes Hx Alcohol Use: No Hx Substance Use: No - Immunization History Hx Tetanus Toxoid Vaccination: No Hx Influenza Vaccination: No Hx Pneumococcal Vaccination: No Review Of Systems Constitutional: Negative for: Fever Cardiovascular: Negative for: Chest Pain, Palpitations Respiratory: Negative for: Shortness of Breath Gastrointestinal: Positive for: Abdominal Pain (and discomfort), Constipation. Negative for: Nausea, Vomiting, Diarrhea Genitourinary: Negative for: Dysuria, Hematuria, Vaginal Discharge, Vaginal Bleeding Skin: Negative for: Rash Physical Exam - Physical Exam Appears: Well, Non-toxic, Other (Uncomfortable appearing ) Skin: Warm, Dry Head: Normacephalic Eye(s): bilateral: Normal Inspection Oral Mucosa: Moist Neck: Supple Cardiovascular: Rhythm Regular Respiratory: Normal Breath Sounds, No Rales, No Rhonchi, No Wheezing Gastrointestinal/Abdominal: Bowel Sounds, Soft, Tenderness (mild diffuse tenderness to palpation ), No Guarding, No Rebound, Other (surgical scar below umbilicus, (-) McBurney's, (-) Atkins's) Extremity: Bilateral: Atraumatic, Normal Color And Temperature, Normal ROM Neurological/Psych: Oriented x3, Normal Speech ED Course And Treatment - Laboratory Results Result Diagrams: 03/09/18 01:37 03/09/18 01:37 O2 Sat by Pulse Oximetry: 94 (RA) Pulse Ox Interpretation: Normal - Other Rad obstructive series X-Ray: Interpreted by Me, Viewed By Me (no air fluids levels, (+) constipation.) Progress Note: Blood work, UA, Upreg obstructive series ordered and reviewed. Patient given IV NS bolus. Patient given PO colace and magnesium citrate for constipation. Reevaluation Time: 03:45 Reassessment Condition: Improved (On reassessment, patient is resting comfortable, had small BM and states she feels better. Rxs for Colace and Magnesium citrate given. Patient insrtructed to drink more water and increase fiber in her diet. She was also instructed to follow up with PMD in 1-2 days, and understands she should return to ED if symptoms worsen.) Disposition Counseled Patient/Family Regarding: Studies Performed, Diagnosis, Need For Followup, Rx Given - Disposition Referrals: Lavell Mosquera MD [Medical Doctor] - Disposition: HOME/ ROUTINE Disposition Time: 03:45 Condition: STABLE Additional Instructions: FOLLOW UP WITH YOUR DOCTOR/CLINIC IN 1-2 DAYS USE MEDICATIONS DIRECTED DRINK PLENTY OF WATER, AND INCREASE YOUR FIBER RETURN TO EMERGENCY ROOM IF YOUR SYMPTOMS BECOME WORSE SEGUIR CON DURANT MDICO / CLNICA EN 1-2 SANTOS UTILICE MEDICAMENTOS GERONIMO SE DIRIGE JENNIFER ALEXI AGUA, Y AUMENTA TU FIBRA VUELVA A LA ARMINDA DE EMERGENCIA SI DEBBIE SNTOMAS SE HACEN PEOR Prescriptions: Docusate [Colace] 100 mg PO DAILY #30 cap Magnesium Citrate [Citrate of Mag] 300 ml PO ONCE PRN #1 bottle PRN Reason: Constipation Instructions: Constipation, Adult (DC) Forms: [employer] (Tongan) Print Language: ICELANDIC - Clinical Impression Clinical Impression: Constipation - Scribe Statement The provider has reviewed the documentation as recorded by the Hema Roman Provider Attestation: All medical record entries made by the Elifibhenry were at my direction and personally dictated by me. I have reviewed the chart and agree that the record accurately reflects my personal performance of the history, physical exam, medical decision making, and the department course for this patient. I have also personally directed, reviewed, and agree with the discharge instructions and disposition.
[2018-03-09] MEDS ORDERED: Magnesium Citrate Oral SOL (300 ml) PO ONE (02:34)
[2018-03-09] MEDS ORDERED: Magnesium Citrate Oral SOL (300 ml) ONE (02:49)
[2018-03-09 03:24] VITALS: BP 124/80; PULSE 58; TEMP 98.2
[2018-03-09 03:49] VITALS: O2SAT 94
--- NOTE | 2018-03-09 11:31 | RAD ---
Date of service: 03/09/2018 PROCEDURE: Radiographs of the chest and abdomen (obstructive series) HISTORY: constipation, abd pain COMPARISON: No prior. TECHNIQUE: AP radiograph of the chest, with upright and supine radiographs of the abdomen. FINDINGS: CHEST: Lungs: The lungs are well inflated and clear. Cardiovascular: Normal size heart. No pulmonary vascular congestion. No aortic atherosclerotic calcification present Pleura: No pleural fluid. No pneumothorax. Other findings: None. ABDOMEN AND PELVIS: Bowel: There is large amount of stool in the colon. The bowel gas pattern is nonspecific. Free air: None. Bones: Unremarkable. Other findings: None. IMPRESSION: Constipation. Non obstructive nonspecific bowel gas pattern. Clear lungs.
== END 2018-03-09 04:05 | disposition home or self-care (01) ==
LOC: C.ER 00:15
DX: K59.00 Constipation, unspecified (principal); I10 Essential (primary) hypertension; E11.9 Type 2 diabetes mellitus without complications; Z87.891 Personal history of nicotine dependence
CPT/HCPCS: 74022; 80053; 81001; 83690; 84703; 85025; 96360; 99285; J7030

== ENCOUNTER 2018-04-18 10:20 | Outpatient (CLI) | payer OTHER | END 2018-04-18 10:21 | disposition home or self-care (01) | LOC: C.MAMMO 10:21 ==

== ENCOUNTER 2018-07-18 00:08 | Emergency (ER) | payer OTHER ==
[2018-07-18 00:09] VITALS: BMI 26.3
[2018-07-18 00:45] VITALS: BP 129/69; PULSE 46; RESP 20; TEMP 98.2; O2SAT 97
[2018-07-18] MEDS ORDERED: Sodium Chloride 0.9% 1,000 ML IV ONE ×2 (00:56→03:14)
--- NOTE | 2018-07-18 00:57 | C.PDOC ---
History Of Present Illness 47 year old female presents with abdominal pain starting today associated with nausea. Patient states she has not had a bowel movement in 8 days. However she was witnessed by nurse to have several bowel movements in the ER. Patient denies vomiting, diarrhea, coughing, chest pain, SOB, fever, dysuria, or hematuria. Time Seen by Provider: 07/18/18 00:31 Chief Complaint (Nursing): Abdominal Pain History Per: Patient History/Exam Limitations: no limitations Onset/Duration Of Symptoms: Days Current Symptoms Are (Timing): Still Present Severity: Mild Location Of Pain/Discomfort: Diffuse Associated Symptoms: Nausea. denies: Fever, Vomiting, Diarrhea, Chest Pain, Urinary Symptoms, Other (Cough, SOB) Exacerbating Factors: None Alleviating Factors: None Recent travel outside of the [place]: No Past Medical History Reviewed: Historical Data, Nursing Documentation, Vital Signs Vital Signs: Last Vital Signs Temp 98.2 F 07/18/18 00:38 Pulse 46 L 07/18/18 00:38 Resp 20 07/18/18 00:38 BP 129/69 07/18/18 00:38 Pulse Ox 97 07/18/18 00:38 Primary Care Provider: Clinic,Med Surg - Medical History PMH: Anxiety, Diabetes, HTN Surgical History: Pacemaker (removed in 2012) - [facility] Procedures VACCINATION NEC (03/24/14) Family History: States: No Known Family Hx - Social History Hx Tobacco Use: Yes Hx Alcohol Use: No Hx Substance Use: No - Immunization History Hx Tetanus Toxoid Vaccination: No Hx Influenza Vaccination: No Hx Pneumococcal Vaccination: No Review Of Systems Constitutional: Negative for: Fever, Chills Cardiovascular: Negative for: Chest Pain, Palpitations Respiratory: Negative for: Cough, Shortness of Breath Gastrointestinal: Positive for: Nausea, Abdominal Pain, Constipation. Negative for: Vomiting, Diarrhea Genitourinary: Negative for: Dysuria, Hematuria Skin: Negative for: Rash Physical Exam - Physical Exam Appears: Well, Non-toxic, Other (In moderate pain. Moaning.) Skin: Normal Color, Warm Head: Normacephalic Eye(s): bilateral: Normal Inspection Oral Mucosa: Moist Neck: Normal, Supple Cardiovascular: Rhythm Regular Respiratory: Normal Breath Sounds, No Rales, No Rhonchi, No Wheezing Gastrointestinal/Abdominal: Bowel Sounds, Soft, Tenderness (Diffuse mild TTP), No Guarding, No Rebound, Other (Surgical scar below the umbilicus in vertical orientation, (-) McBurney's, (-) Atkins's) Back: Normal Inspection, No CVA Tenderness Neurological/Psych: Oriented x3 ED Course And Treatment - Laboratory Results Result Diagrams: 07/18/18 04:45 07/18/18 02:18 O2 Sat by Pulse Oximetry: 97 (Room air) Pulse Ox Interpretation: Normal - Other Rad Obstructive series X-Ray: Interpreted by Me, Viewed By Me Interpretation: No air fluid levels. - CT Scan/US ct abd/pelvis Other Rad Studies (CT/US): Read By Radiologist, Radiology Report Reviewed CT/US Interpretation: CT SCAN OF THE ABDOMEN AND PELVIS WITH CONTRAST. CLINICAL HISTORY: Diffuse abdominal pain. TECHNIQUE: Multiple axial and coronal CT images were obtained through the abdomen and pelvis after administration of intravenous contrast material. COMPARISON: 03/03/2018 01:12 AM EST: CT\SD: ABD PELVIS IV CONTRAST ON. COMMENTS: Mild diffuse thickening of the distal transverse, descending and sigmoid colon. Duplicated IVC, congenital normal variant. 1.8 cm fundal intramural uterine fibroid. Unchanged. The liver is of uniform attenuation without mass or defect. There is no intra or extrahepatic biliary ductal dilatation. The spleen is normal. The gallbladder is within normal limits. The pancreas is of normal contour and attenuation characteristics. There is no evidence of adrenal mass. Both kidneys demonstrate prompt and equal nephrograms. The kidneys are normal in size, shape and configuration. There is no evidence of renal or ureteral mass. No renal or ureteral calculi are identified. There is no hydroureter or hydronephrosis. No evidence for appendicitis. There is no bowel wall thickening. No evidence for small or large bowel obstruction. There is no evidence of abdominal ascites or lymphadenopathy. There is no evidence of intrinsic or extrinsic bladder mass. There is no pelvic ascites or lymphadenopathy. Images of the lung bases show no evidence of pleural or parenchymal mass. There are no pleural effusions. The bony structures are free of lytic or blastic lesions. IMPRESSION: Mild diffuse thickening of the distal colon. Under tension, spasm versus mild uncomplicated colitis. Thank you for your kind referral of this patient. . Electronically signed on July 18, 2018 5:50:36 AM EDT by: Mandy Watters M.D., Certified by ABR, MSK, Neuroradiology. Progress Note: Blood work, UA, obstructive series ordered and reviewed. Patient given IV NS bolus, IV toradol. 3:40- On reassessment, patient continued to c/o diffuse abdominal pain. CT scan abd/pelvis ordered. Reevaluation Time: 06:15 Reassessment Condition: Improved (On reassessment, patient is resting comfortably and states she feels better. CT scan shows mild colitis. Ciprofloxacin and Flagyl given PO. Patient given Rxs for Cipro, Flagyl, Tylenol and Bentyl. She was instructed to follow up with PMD/clinic in 1-2 days. She understands she should return to ED of symptoms worsen.) Disposition Counseled Patient/Family Regarding: Studies Performed, Diagnosis, Need For Followup, Rx Given - Disposition Referrals: [facility] [Outside] Disposition: HOME/ ROUTINE Disposition Time: 06:20 Condition: STABLE Additional Instructions: FOLLOW UP WITH YOUR DOCTOR IN 1-2 DAYS USE MEDICATIONS DIRECTED RETURN TO EMERGENCY ROOM IF YOUR SYMPTOMS BECOME WORSE SEGUIR CON DURANT MDICO EN 1-2 SANTOS UTILICE MEDICAMENTOS GERONIMO SE DIRIGE VUELVA A LA ARMINDA DE EMERGENCIA SI DEBBIE SNTOMAS SE HACEN PEOR Prescriptions: Acetaminophen [Tylenol 325mg tab] 650 mg PO Q6 PRN #30 tab PRN Reason: pain/fever Ciprofloxacin [Cipro] 1 tab PO BID #14 tab Dicyclomine [Bentyl] 20 mg PO Q6 PRN #15 tab PRN Reason: ABDOMINAL CRAMPING metroNIDAZOLE [Flagyl] 500 mg PO TID #21 tab Instructions: Colitis (DC) Forms: [employer] (Turkmen) Print Language: CANADIAN - Clinical Impression Clinical Impression: Abdominal pain, Colitis - Scribe Statement The provider has reviewed the documentation as recorded by the Elifibhenry Strickland All medical record entries made by the Elifibhenry were at my direction and personally dictated by me. I have reviewed the chart and agree that the record accurately reflects my personal performance of the history, physical exam, medical decision making, and the department course for this patient. I have also personally directed, reviewed, and agree with the discharge instructions and disposition.
[2018-07-18 02:24] LABS: BASO % 0.2 % (0.0-2.0); EOS % 0.2 % (0.0-4.0); HEMOGLOBIN 13.6 g/dL (11.0-16.0); LYMPH # 1.4 K/uL (1.0-4.3); LYMPH % 8.5 % (20.0-40.0); MEAN CELL VOLUME 91.8 fL (81.0-99.0); MEAN CORPUSCULAR HEMOGLOBIN 30.2 pg (27.0-31.0); MEAN CORPUSCULAR HGB CONC 32.9 g/dL (33.0-37.0); MEAN PLATELET VOLUME 8.3 fL (7.2-11.7); MONO # 0.2 K/uL (0.0-0.8); MONO % 1.2 % (0.0-10.0); NEUT # 14.6 K/uL (1.8-7.0); NEUT % 89.9 % (50.0-75.0); PLATELET COUNT 209 K/uL (130-400); WHITE BLOOD COUNT 16.2 K/uL (4.8-10.8)
[2018-07-18 02:32] LABS: ALB/GLOB RATIO 1.2 (1.0-2.1); ALBUMIN 4.4 g/dL (3.5-5.0); BLOOD UREA NITROGEN 17 mg/dL (7-17); CALCIUM 9.6 mg/dl (8.6-10.4); GFR NON-AFRICAN AMERICAN > 60; LIPASE 113 U/L (23-300)
[2018-07-18 02:49] LABS: ALT/SGPT 12 U/L (9-52); AST/SGOT 27 U/L (14-36)
[2018-07-18 03:07] LABS: HCG,QUALITATIVE URINE NEGATIVE (NEGATIVE); SQUAMOUS EPITHIAL 1 /hpf (0-5); URINE BACTERIA OCC (<OCC); URINE BILIRUBIN NEGATIVE (NEGATIVE); URINE BLOOD 2+ (NEGATIVE); URINE CLARITY Hazy (Clear); URINE COLOR Yellow (YELLOW); URINE GLUCOSE (UA) NORMAL (Normal); URINE LEUKOCYTE ESTERASE NEG Leu/uL (Negative); URINE PROTEIN NEGATIVE (NEGATIVE); URINE UROBILINOGEN NORMAL mg/dL (0.2-1.0)
[2018-07-18 03:25] LABS: BANDS 6 % (0-2); EOSINOPHIL 1 % (0-4); LYMPHOCYTE 8 % (20-40); MONOCYTE 1 % (0-10); NEUTROPHIL 84 % (50-75); PLATELET CLUMPS PRESENT; PLATELET ESTIMATE NORMAL (NORMAL); TOTAL CELLS COUNTED 100
[2018-07-18 04:47] LABS: VENOUS BLOOD GAS BASE EXCESS 0.5 mmol/L (0.0-2.0); VENOUS BLOOD GAS PCO2 44 mmHg (40-60); VENOUS BLOOD GAS PO2 49 mm/Hg (30-55); VENOUS BLOOD PH 7.38 (7.32-7.43)
[2018-07-18 04:50] LABS: BASO % 0.1 % (0.0-2.0); EOS % 0.1 % (0.0-4.0); HEMOGLOBIN 12.4 g/dL (11.0-16.0); LYMPH # 0.6 K/uL (1.0-4.3); LYMPH % 3.6 % (20.0-40.0); MEAN CORPUSCULAR HEMOGLOBIN 29.9 pg (27.0-31.0); MEAN CORPUSCULAR HGB CONC 33.4 g/dL (33.0-37.0); MEAN PLATELET VOLUME 7.7 fL (7.2-11.7); MONO # 0.5 K/uL (0.0-0.8); MONO % 3.3 % (0.0-10.0); NEUT # 14.6 K/uL (1.8-7.0); NEUT % 92.9 % (50.0-75.0); RBC 4.13 Mil/uL (3.80-5.20); RED CELL DISTRIBUTION WIDTH 12.9 % (11.5-14.5); WHITE BLOOD COUNT 15.7 K/uL (4.8-10.8)
[2018-07-18] MEDS ORDERED: Iodixanol 320 MG/ML 100 ML BOTTLE IV ONE (04:50)
[2018-07-18 04:53] LABS: MEAN CELL VOLUME 89.7 fL (81.0-99.0)
--- NOTE | 2018-07-18 08:38 | CT ---
Date of service: 07/18/2018 PROCEDURE: CT Abdomen and Pelvis with contrast HISTORY: diffuse abd pain COMPARISON: 03/03/2018 TECHNIQUE: Contrast dose: 100 mL Visipaque 320 Radiation dose: Total exam DLP = 847.23 mGy-cm. This CT exam was performed using one or more of the following dose reduction techniques: Automated exposure control, adjustment of the mA and/or kV according to patient size, and/or use of iterative reconstruction technique. FINDINGS: LOWER THORAX: Unremarkable. LIVER: Unremarkable. No gross lesion or ductal dilatation. GALLBLADDER AND BILE DUCTS: Unremarkable. PANCREAS: Unremarkable. No gross lesion or ductal dilatation. SPLEEN: Unremarkable. ADRENALS: Unremarkable. No mass. KIDNEYS AND URETERS: Unremarkable. No hydronephrosis. No solid mass. VASCULATURE: Unremarkable. No aortic aneurysm. No aortic atherosclerotic calcification or mural plaque present. BOWEL: Unremarkable. No obstruction. No gross mural thickening. APPENDIX: Not positively identified. No secondary findings. PERITONEUM: Unremarkable. No free fluid. No free air. LYMPH NODES: Unremarkable. No enlarged lymph nodes. BLADDER: Unremarkable. REPRODUCTIVE: Uterus significant for a 12 mm rounded low attenuation mass in the fundus consistent with a small leiomyoma. Correlate with pelvic ultrasound examination. BONES: No acute fracture. OTHER FINDINGS: None. IMPRESSION: No acute abnormality. Incidental small uterine fibroid. Otherwise unremarkable examination. The preliminary findings for this examination were reported by [facility] at 5:50 a.m. on 07/18/2018. There is concurrence of this report with the preliminary findings. A tumor can't
--- NOTE | 2018-07-18 10:24 | RAD ---
Date of service: 07/18/2018 PROCEDURE: Radiographs of the chest and abdomen (obstructive series) HISTORY: constipation COMPARISON: No prior. TECHNIQUE: AP radiograph of the chest, with upright and supine radiographs of the abdomen. 3 views obtained. FINDINGS: CHEST: Lungs: Clear. Cardiovascular: Normal size heart. No pulmonary vascular congestion. No aortic atherosclerotic calcification present Pleura: No pleural fluid. No pneumothorax. Other findings: None. ABDOMEN AND PELVIS: Bowel: Unremarkable bowel gas pattern. No evidence of mechanical obstruction. Free air: None. Bones: Unremarkable. Other findings: None. IMPRESSION: Unremarkable radiographs of chest and abdomen. No evidence of mechanical bowel obstruction.
== END 2018-07-18 06:30 | disposition home or self-care (01) ==
LOC: C.ER 00:08
DX: K52.9 Noninfective gastroenteritis and colitis, unspecified (principal); R10.9 Unspecified abdominal pain
CPT/HCPCS: 36415; 74022; 74177; 80053; 81001; 81025; 82803; 83690; 84703; 85025; 96360; 99284; J7030; Q9967